=== PATIENT | female | born 1985 | race Caucasian/White ===

== ENCOUNTER 2017-11-22 09:20 | Inpatient (IN) | payer MEDICAID, SELFPAY ==
[2017-11-22] VITALS (19 sets, daily range): BP systolic 94–139; BP diastolic 47–80; PULSE 67–99; RESP 16–18; TEMP 36.1–36.8; O2SAT 93–98; BMI 29.2
[2017-11-22] MEDS: Lactated Ringers 1,000 ML 999 ML IV (09:50)
[2017-11-22] MEDS: Sodium Citrate/Citric Acid 30 ML UDC PO (10:00)
[2017-11-22 10:05] LABS: Bedside Glucose 82 mg/dL (70-110)
[2017-11-22 10:06] LABS: Absolute Lymphocyte Count 2.68 X10^3/ul (0.83-4.51); Absolute Neutrophil Count 9.4 X10^3/uL (2.0-7.7); Basophil# 0.04 X10^3/uL; Basophil% 0.3 % (0-1); Eosinophils% 1.5 % (0-5); Hematocrit 35.4 % (37-47); Hemoglobin 11.2 g/dl (12.0-15.0); Lymphocyte # 2.68 X10^3/ul (4.0); Mean Corp Hgb Conc 31.6 g/gl (32-36); Mean Corpuscular Hgb 28.6 pg (27.0-32.0); Mean Corpuscular Volume 90.3 fL (81-99); Mean Platelet Vol. 10.7 fl (6.2-12.0); Monocyte# 0.96 X10^3/uL; Monocyte% 7.2 % (0-10); Neutrophil # 9.44 X10^3/uL (2.7-7.7); Neutrophil % 70.4 % (47-70); Platelet Count 276 K/mm3 (150-450); RBC Distribution Width CV 16.9 % (11.6-14.6); RBC Distribution Width SD 55.2 fl (35.1-43.9); Red Blood Count 3.92 M/mm3 (4.2-5.4); White Blood Count 13.4 K/mm3 (4.4-11.0)
[2017-11-22 10:08] LABS: POSITIVE COUNT NO; POSITIVE DIFFERENTIAL NO; POSITIVE MORPHOLOGY NO
[2017-11-22] MEDS: Cefazolin 2 GM in 0.9% Normal Saline 100 ML IV (10:52)
[2017-11-22] MEDS: Oxytocin 30 units/NS 500 ml 30 UNITS/500 ML IV.SOLN 167 UNITS IV (11:09)
[2017-11-22 11:35] LABS: Bedside Glucose 92 mg/dL (70-110)
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
[2017-11-22 12:00] LABS: Prothrombin Time (Protime)PT. 13.3 SECONDS (11.7-14.9)
[2017-11-22] MEDS: Lactated Ringers 1,000 ML 100 ML IV ×2 (12:00→17:27)
--- NOTE | 2017-11-22 12:01 | PLAC_PTH ---
PATIENT: JINNY BARKSDALE LOC: [facility] U#:[id number] AGE/SX: 32/F ROOM: [facility] RE11/22/[address]: Dr. Adela Conteh DO : 1985 BED: 1 DIS: 11/25/2017 SPEC #: [id number] RECD: 11/22/17 12:45 STATUS: ERIK CRISTA #: [id number] AKILAH: 11/22/17 12:[address]: Adela Conteh DEPT: SURGICAL PATHOLOGY RECD BY: Hiro Ragland Tissues: Placenta, NOS Procedures: Surgery Specimen Level V HEADER OPERATION: Repeat section PRE-OP DIAGNOSIS: IUGR TISSUE SUBMITTED: Placenta MICROSCOPIC DIAGNOSIS Placenta: Placental disc - third trimester placenta (405 gm). - Focal areas of intraparenchymal hemorrhage (0.5 cm in greatest dimension). Membranes - pigment laden macrophages, consistent with meconium staining. Umbilical cord - three blood vessels and no pathologic diagnosis. SJ:eliecer 11/24/17 MICROSCOPIC DESCRIPTION Slides are reviewed. GROSS DESCRIPTION SPECIMEN: PLACENTA / CLINICAL INFORMATION: A. Weight: 2.262 kg B. Gestational Age: 38 weeks C. Sex: Female PLACENTAL WEIGHT (POST FIXATION): 405 gm PLACENTAL DIMENSIONS: 15 x 15 x 3 cm PLACENTAL SHAPE: Usual ovoid PLACENTAL WEIGHT FOR GESTATIONAL AGE: Within 10-99th percentile MEMBRANES - Present A. Insertion: Marginal B. Site of rupture from edge: At edge of placental disc C. Color of membrane: Linda, mucoidy-greenish consistent with meconium staining. D. Abnormalities: None UMBILICAL CORD - Present A. Color: Linda-young B. Insertion: Paracentral C. Length: 49 cm D. Diameter: 0.6 to 1.2 cm E. Number of vessels: Three F. Abnormalities: None PLACENTAL DISC - Present A. Color of surface: Linda-greenish consistent with meconium staining. B. surface abnormalities: None C. Maternal cotyledons: Intact with minimal tears D. Attached retro placental clot: No clot E. Cut surface: Dark red and spongy F. Lesions: Sections reveal two linda, indurated areas each measuring 0.5 cm in greatest dimension. G. Separate clot: Multiple blood clots are noted measuring in aggregate 6 x 5 x 2 cm and weighing 20?gm. SECTIONS SUBMITTED: 1. Membrane roll 2. Cord, maternal end, lesion 3. Cord, end 4. Placental disc, and maternal surfaces 5. Placental disc, and maternal surfaces 6. Placental disc, and maternal surfaces JOSE:eliecer 11/23/17 TC:5 CPT: 99151
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
[2017-11-22 12:44] LABS: Pathology Specimen OB SEE PATHOLOGY REPORT
[2017-11-22 15:36] LABS: Bedside Glucose 95 mg/dL (70-110)
[2017-11-22] MEDS: Ketorolac 30 MG/ML Syringe IV (17:23)
[2017-11-22 17:51] LABS: Bedside Glucose 164 mg/dL (70-110)
[2017-11-22 21:11] LABS: Bedside Glucose 136 mg/dL (70-110)
[2017-11-22] MEDS: Sertraline 100 MG Tablet PO (22:50)
[2017-11-22] MEDS: busPIRone 5 MG Tablet 10 MG PO (22:50)
[2017-11-22] MEDS: oxyCODONE 5 MG Tablet PO (22:51)
[2017-11-22 23:05] LABS: Bedside Glucose 109 mg/dL (70-110)
[2017-11-23] VITALS (12 sets, daily range): BP systolic 106–129; BP diastolic 50–70; PULSE 79–98; RESP 16–20; TEMP 36.2–36.8; O2SAT 91–98
[2017-11-23] MEDS: Lactated Ringers 1,000 ML 100 ML IV ×2 (01:25→06:11)
[2017-11-23] MEDS: Lactated Ringers 500 ML 999 ML IV (03:20)
[2017-11-23] MEDS: oxyCODONE 5 MG Tablet PO ×4 (04:23→20:03)
[2017-11-23 05:57] LABS: Hematocrit 28.1 % (37-47); Hemoglobin 8.7 g/dl (12.0-15.0); Mean Corpuscular Hgb 28.6 pg (27.0-32.0); Mean Corpuscular Volume 92.4 fL (81-99); Mean Platelet Vol. 10.4 fl (6.2-12.0); Platelet Count 245 K/mm3 (150-450); RBC Distribution Width CV 16.4 % (11.6-14.6); RBC Distribution Width SD 53.7 fl (35.1-43.9); Red Blood Count 3.04 M/mm3 (4.2-5.4); White Blood Count 16.2 K/mm3 (4.4-11.0)
[2017-11-23 06:00] LABS: International Normalized Ratio 0.9; Partial Thromboplast Time 25.5 Seconds (24.1-36.2); Prothrombin Time (Protime)PT. 12.4 SECONDS (11.7-14.9)
[2017-11-23 06:06] LABS: Scan Indicated on CBC? Y/N NO
[2017-11-23] MEDS: Ketorolac 30 MG/ML Syringe IV (06:20)
--- NOTE | 2017-11-23 08:13 | PCM.PN.OB ---
Patient Problems: Active and Suspected Problems (Last Updated 11/22/17 @ 11:43 by Adela Conteh DO) SROM (spontaneous rupture of membranes) (Acute) Subjective: Patient doing well. Cramping that is improved with pain medication. Ambulated to chair without difficulty yesterday. +Flatus. Hester in place draining clear yellow urine. Lázaro diet without nausea or vomiting. without difficulty. Lochia normal. No fevers, cp, sob, leg pain. - Physical Exam General: Alert, Oriented x3 HEENT: Atraumatic Lungs: - - No increased resp effort Abdomen: Soft, - - ATTP, FF@U, silver dressing in place and clean Extremities: No edema, No Calf Tenderness Skin: No rashes Neurological: Neuro grossly intact Psych/Mental Status: Normal Affect Vital Signs Temp Pulse Resp BP Pulse Ox 97.9 F 80 16 109/55 L 93 11/23/17 03:50 11/23/17 05:00 11/23/17 05:00 11/23/17 03:50 11/23/17 05:00 Oxygen Delivery Method Room Air Weight: 165 lb Body Mass Index (BMI) 29.2 Intake and Output for Last 24 Hours 11/21/17 11/22/17 11/23/17 23:59 23:59 23:59 Intake Total 3143 / 3143 3171 / 3171 Output Total 675 / 675 360 / 360 Balance 2468 / 2468 2811 / 2811 Laboratory Tests Past 24 Hrs 11/22/17 11/22/17 11/22/17 09:50 09:50 09:50 WBC 13.4 H RBC 3.92 L Hgb 11.2 L Hct 35.4 L MCV 90.3 MCH 28.6 MCHC 31.6 L RDW 16.9 H RDW Differential 55.2 H Plt Count 276 MPV 10.7 Immature Gran % (Auto) 0.600 Neut % (Auto) 70.4 H Lymph % (Auto) 20.0 [place] % (Auto) 7.2 Eos % (Auto) 1.5 Baso % (Auto) 0.3 Absolute Neuts (auto) 9.4 H Absolute Lymphs (auto) 2.68 Total Counted Not Reportable PT Cancelled INR Cancelled APTT Cancelled Functional Protein C Functional Protein S Func Antithrombin III Factor V Leiden Mutat Blood Type A POSITIVE Antibody Screen NEGATIVE 11/22/17 11/23/17 11/23/17 11:25 05:33 05:33 WBC 16.2 H RBC 3.04 L Hgb 8.7 L Hct 28.1 L MCV 92.4 MCH 28.6 MCHC 31.0 L RDW 16.4 H RDW Differential 53.7 H Plt Count 245 MPV 10.4 Immature Gran % (Auto) Neut % (Auto) Lymph % (Auto) [place] % (Auto) Eos % (Auto) Baso % (Auto) Absolute Neuts (auto) Absolute Lymphs (auto) Total Counted PT 13.3 12.4 INR 1.0 0.9 APTT 24.0 L 25.5 Functional Protein C Functional Protein S Func Antithrombin III Factor V Leiden Mutat Blood Type Antibody Screen 11/23/17 11/23/17 11/23/17 05:33 05:33 05:33 WBC RBC Hgb Hct MCV MCH MCHC RDW RDW Differential Plt Count MPV Immature Gran % (Auto) Neut % (Auto) Lymph % (Auto) [place] % (Auto) Eos % (Auto) Baso % (Auto) Absolute Neuts (auto) Absolute Lymphs (auto) Total Counted PT INR APTT Functional Protein C Pending Functional Protein S Pending Func Antithrombin III Pending Factor V Leiden Mutat Pending Blood Type Antibody Screen POC Glucose 11/22/17 11/22/17 11/22/17 22:47 19:55 17:42 POC Glucose 109 136 H 164 H 11/22/17 11/22/17 11/22/17 15:14 11:30 09:54 POC Glucose 95 92 82 Medical Necessity - Tobacco Use Smoking Status: Current every day smoker Assessment/Plan All Active Problems (Last Updated 11/22/17 @ 11:43 by Adela Conteh DO) SROM (spontaneous rupture of membranes) (Acute) Post-op day 2 s/p RLTCS - AF, VSS - Doing well - Received fluid bolus this morning for low UOP, improved and UOP adequate - Type 2 DM: Continue accuchecks. Highest BG 160's, patient states due to diet (hamburger, ice cream, banana bread). Continue to monitor accuchecks. Diabetic diet - Hx of DVT/PE: Thrombophilia workup pending. Continue Lovenox today - D/c hester today and encouraged ambulation - - PPBC: Desires depo - Dispo: Routine postop care
[2017-11-23 08:25] LABS: Bedside Glucose 75 mg/dL (70-110)
[2017-11-23] MEDS: Enoxaparin 80 MG/0.8 ML Syringe 74 MG SC ×2 (11:01→21:40)
[2017-11-23] MEDS: 0.9% Saline Lock 10 ML Syringe IV (11:08)
[2017-11-23 11:46] LABS: Bedside Glucose 86 mg/dL (70-110)
[2017-11-23] MEDS: Ferrous Sulfate 325 MG Tablet PO ×2 (13:18→17:59)
--- NOTE | 2017-11-23 13:55 | NURSING ---
This nursing information systems coordinator reviewed the charting completed by Mario Alberto Staples, student nurse and it is complete.
[2017-11-23] MEDS: Ibuprofen 600 MG Tablet PO ×2 (14:48→21:39)
[2017-11-23 15:20] LABS: Bedside Glucose 82 mg/dL (70-110)
[2017-11-23] MEDS: DiphenhydrAMINE 25 MG Capsule PO (17:58)
[2017-11-23 18:10] LABS: Bedside Glucose 70 mg/dL (70-110)
[2017-11-23 20:36] LABS: Bedside Glucose 107 mg/dL (70-110)
[2017-11-23] MEDS: Sertraline 100 MG Tablet PO (21:40)
[2017-11-23 22:05] LABS: Bedside Glucose 94 mg/dL (70-110)
[2017-11-24] MEDS: oxyCODONE 5 MG Tablet PO ×6 (00:20→22:53)
[2017-11-24] MEDS: DiphenhydrAMINE 25 MG Capsule PO ×2 (00:20→21:39)
[2017-11-24 02:13] VITALS: BP 127/70; PULSE 90; RESP 18; TEMP 36.6; O2SAT 95
[2017-11-24] MEDS: Ibuprofen 600 MG Tablet PO ×4 (03:47→21:38)
[2017-11-24 07:00] VITALS: BP 128/73; PULSE 91; RESP 14; TEMP 36.8; O2SAT 95
[2017-11-24 09:06] LABS: Bedside Glucose 82 mg/dL (70-110)
--- NOTE | 2017-11-24 09:28 | PCM.PN.OB ---
Patient Problems: Active and Suspected Problems (Last Updated 11/22/17 @ 11:43 by Adela Conteh DO) SROM (spontaneous rupture of membranes) (Acute) Subjective: Patient doing well. She feels her mood is stable. Tolerating a diet, but not adhering to a diabetic diet. No fevers, nausea, vomiting, cp, sob, leg pain. Lochia normal. Ambulating and voiding without difficulty. . Desires depo for BC. - Physical Exam General: Alert, Oriented x3 HEENT: Atraumatic Lungs: - - No increased resp effort Abdomen: Soft, Non Tender, - - FF@U, silver dressing in place without shadowing and no surrounding errythema Extremities: No Calf Tenderness Skin: No rashes Neurological: Neuro grossly intact Psych/Mental Status: Appropriate Vital Signs Temp Pulse Resp BP Pulse Ox 98.2 F 91 14 128/73 H 95 11/24/17 07:00 11/24/17 07:00 11/24/17 07:00 11/24/17 07:00 11/24/17 07:00 Oxygen Delivery Method Room Air Weight: 165 lb Body Mass Index (BMI) 29.2 Intake and Output for Last 24 Hours 11/22/17 11/23/17 11/24/17 23:59 23:59 23:59 Intake Total 3143 / 3143 3171 / 3171 Output Total 675 / 675 1260 / 1260 Balance 2468 / 2468 1911 / 1911 POC Glucose 11/24/17 11/23/17 11/23/17 08:54 21:59 20:02 POC Glucose 82 94 107 11/23/17 11/23/17 11/23/17 18:04 15:04 11:38 POC Glucose 70 82 86 Medical Necessity - Tobacco Use Smoking Status: Current every day smoker Assessment/Plan All Active Problems (Last Updated 11/22/17 @ 11:43 by Adela Conteh DO) SROM (spontaneous rupture of membranes) (Acute) POD#2 s/p RLTCS for IUGR, hx of prior - AF, VSS - Doing well - Continue SSRI. Patient usually takes Buspar as needed for anxiety. Discussed that there is insufficient data on Buspar with . Patient desires to stop Buspar. Told her to let us know if her anxiety worsens - Hx of DVT/PE: Continue Lovenox. Thrombophilia panel pending. Will have her follow up with abbie - Type 2 DM: BG have been well controlled. Pt not adhering to diabetic diet after counseling. Will decrease BG checks to fasting, 1 hour postprandial, qHS. Pt reported to RN that she was not checking her BG's at home as her meter broke. Will send her an rx for meter - Post-op anemia: Continue Iron. Will send rx for Iron - Routine post-op care - Dispo: Possible d/c home tomorrow. Will give Depo for BC prior to d/c
[2017-11-24] MEDS: Enoxaparin 80 MG/0.8 ML Syringe SC ×2 (10:00→21:39)
[2017-11-24 11:00] VITALS: BP 127/56; PULSE 79; RESP 18; TEMP 36.9; O2SAT 94
[2017-11-24 11:20] LABS: Bedside Glucose 86 mg/dL (70-110)
[2017-11-24] MEDS: Ferrous Sulfate 325 MG Tablet PO ×2 (13:33→18:25)
[2017-11-24 15:46] LABS: Bedside Glucose 83 mg/dL (70-110)
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
[2017-11-24 16:55] VITALS: BP 123/79; PULSE 102; RESP 18; TEMP 36.6; O2SAT 95
--- NOTE | 2017-11-24 18:48 | NURSING ---
Support person, Paul, in room and talking appropriately with this nurse. Pt. states Paul brought her prescription bottle for tylenol in to show us that is does not contain codeine. Prescription bottle given to RN is empty and label reads acetaminophin 500 mg but the top of the label is torn off. Returned to pt. Questions answered regarding baby care and dinner for pt.
[2017-11-24 19:18] LABS: Chlamydia Trachomatis by PCR Negative (Negative); Neisserai gonorrhoeae by PCR Negative (Negative)
[2017-11-24 19:19] LABS: Probe Check PASS; Sample Adequacy Control PASS; Specimen Processing Control PASS
[2017-11-24 20:16] VITALS: BP 134/75; PULSE 115; RESP 18; TEMP 36.3
[2017-11-24] MEDS: Sertraline 100 MG Tablet PO (21:39)
[2017-11-24 21:51] LABS: Bedside Glucose 90 mg/dL (70-110)
--- NOTE | 2017-11-24 22:13 | NURSING ---
[id number] patient had late supper and assessing post prandial blood glucose now, patient states that she will be going to bed now, HS blood glucose not being assessed d/t patient going to sleep at this time.
[2017-11-25 01:40] VITALS: BP 111/73; PULSE 67; RESP 18; TEMP 36.7
[2017-11-25 02:41] LABS: Bedside Glucose 94 mg/dL (70-110)
--- NOTE | 2017-11-25 02:42 | NURSING ---
patient came out to nurses station and stated that she needed her blood sugar checked because she felt jittery, this RN stated that RN would be back; bedside blood glucose 94.
[2017-11-25] MEDS: Ibuprofen 600 MG Tablet PO ×3 (04:43→15:07)
[2017-11-25] MEDS: oxyCODONE 5 MG Tablet PO ×3 (04:47→12:43)
[2017-11-25 06:03] VITALS: PULSE 72; RESP 16; O2SAT 94
--- NOTE | 2017-11-25 08:17 | PN.OBGYN_ITS ---
Patient Problems: Active and Suspected Problems (Last Updated 11/22/17 @ 11:43 by Adela Conteh DO) SROM (spontaneous rupture of membranes) (Acute) Subjective: Patient doing well. Tolerating reg diet and spont void without difficulty. +Flatus. Ambulating without difficulty. Lochia normal. Pain well controlled. Denies fevers, chills, cp, sob, leg pain. . Feels ready to go home today. She does not want depo, and is still considering her options for control. - Physical Exam General: Alert, Oriented x3 HEENT: Atraumatic Lungs: - - No increased resp effort Abdomen: Soft, Non Tender, - - FF@U-1 Extremities: No Calf Tenderness Skin: No rashes Neurological: Neuro grossly intact Psych/Mental Status: Appropriate Vital Signs Temp Pulse Resp BP Pulse Ox 98.1 F 72 16 111/73 94 11/25/17 01:40 11/25/17 06:03 11/25/17 06:03 11/25/17 01:40 11/25/17 06:03 Oxygen Delivery Method Room Air Weight: 165 lb Body Mass Index (BMI) 29.2 Intake and Output for Last 24 Hours 11/23/17 11/24/17 11/25/17 23:59 23:59 23:59 Intake Total 3171 / 3171 150 / 150 Output Total 1260 / 1260 Balance 1911 / 191 150 / 150 Laboratory Tests Past 24 Hrs 11/24/17 15:40 Chlam trachomat DNA PCR Negative N.gonorrhoeae DNA (PCR) Negative POC Glucose 11/25/17 11/24/17 11/24/17 02:36 21:37 15:35 POC Glucose 94 90 83 11/24/17 11/24/17 11:15 08:54 POC Glucose 86 82 Medical Necessity - Tobacco Use Smoking Status: Current every day smoker Assessment/Plan All Active Problems (Last Updated 11/22/17 @ 11:43 by Adela Conteh DO) SROM (spontaneous rupture of membranes) (Acute) Post-op #3 s/p RLTCS - Doing well, ready to go home - Reviewed discharge instructions and to follow up in 1 week and again in 4-6 weeks - Re-discussed PPBC and she is undecided at this time. Reviewed her options - Will send rx's for Percocet, Iron, Lovenox, and glucometer - Discussed with her the importance of calling her injection wax molder and PCP for continued management of her medical problems now that she is . Told her to call to make appointments with them - D/c home today
--- NOTE | 2017-11-25 08:24 | DCINST_ITS ---
Discharge Diet: - - Diabetic diet Discharge Activity: May not drive while taking narcotic pain medications., May Shower May resume sexual activity in: 6 weeks Weight Bearing Status: Partial weight bearing Lifting Restrictions: No lifting over 25 pounds Call your doctor if your incision/area has: Sudden Increased Bleeding, Increased Pain/ Swelling, Increased Redness, Foul Smelling Discharge, Swelling at the incision site Call your doctor if you observe: Fever of 101 or Higher, Using more than one pad per hour, Shortness of breath, Chest pain, Calf discomfort, Uncontrolled pain Additional Instructions: If you experience any of the following, contact your healthcare provider. * Bleeding that soaks a pad every hour for 2 hours * Fever 100.4 or higher * Unrelieved incision or abdominal pain * Swelling, redness, discharge or bleeding from your incision or episiotomy site * Your incision begins to separate * Problems urinating (including inability to urinate or burning while urinating). * Visual changes * Severe headache * Flu-like symptoms * Pain or redness in one of both of your breasts * Pain, warmth, tenderness or swelling in your legs, especially the calf area * Frequent nausea and vomiting * Symptoms of depression or anxiety If you experience any of the following, call 911 or go to the nearest Emergency Room. * Chest pain * Problems breathing * Seizure activity * Partial or complete paralysis of a body part, slurred speech, weakness or drooping of the face, or a sudden inability to walk or hold your balance Allergies/Adverse Reactions: Allergies iodine Allergy (Verified 11/22/17 10:02) Unknown latex Allergy (Verified 11/22/17 10:02) Unknown lidocaine Allergy (Verified 11/22/17 10:02) Unknown codeine Adverse Reaction (Verified 11/22/17 10:02) Nausea Penicillins Adverse Reaction (Verified 11/22/17 10:02) Upset Stomach Medications to take at Discharge Buspar 10 mg PO TID 11/22/17 Heparin 10,000 Unit/1,000Ml-Ns 10,000 unit SQ BID 11/22/17 Sertraline HCl [Zoloft] 100 mg PO DAILY 11/22/17 Ferrous Sulfate 325 mg PO BIDCM #60 tablet 11/24/17 Enoxaparin [Lovenox] 80 mg SC Q12@0600,1800 #60 syringe 11/25/17 Ferrous Sulfate 325 mg PO BIDCM #60 tablet 11/25/17 The following prescriptions were given: Enoxaparin [Lovenox] 80 mg SC Q12@0600,1800 #60 syringe Ferrous Sulfate 325 mg PO BIDCM #60 tablet Ferrous Sulfate 325 mg PO BIDCM #60 tablet Follow-Up: Call to make an appointment with your doctor for an incision check in 1-2 weeks. You will also need a 6 week post- follow up appointment. Test results from this visit will be discussed in further detail at your follow- up appointment, if applicable. Please Follow Up With: Adela Conteh DO When: 1 week and 4-6 weeks
[2017-11-25 08:51] LABS: Antithrombin 3 Function 123 % (75-135)
[2017-11-25] MEDS: Ferrous Sulfate 325 MG Tablet PO (09:03)
[2017-11-25] MEDS: Enoxaparin 80 MG/0.8 ML Syringe SC (09:04)
[2017-11-25 09:17] VITALS: BP 117/68; PULSE 82; RESP 24; TEMP 36.6
--- NOTE | 2017-11-25 11:45 | CASEMGMT ---
Social Work Labor and Delivery Unit Summary: 0935 Referral to [facility] ([facility]) at [phone]. Spoke with Yvonne in the intake department. Brief maternal and infant histories provided. Reported concerns about reported substance exposed baby, of reported prescribed opiates, though no positive drug screens showing at this time. Also reported concerns about later and intermittent care, inconsistent reports regarding medical history, and mother of baby reporting to have another child who and giving inconsistent reports as to when the child . Reported maternal mental health history, as well as father of baby (FOB) reportedly having history, which both could be additional risk factors down the road for care and safety of the baby. 1055 Presented to mother of baby (MOB) room. MOB holding baby and FOB in the bathroom showering when psychiatric social worker supervisor entered the room. MOB reports to be ready to leave today with the baby. MOB showed this filing writer the prescription Tylenol bottle that FOLucy brought in. MOB reports this was what MOB took prior to coming into the hospital, so reports there is no need to worry or have further concern on psychiatric social worker supervisor?s part. Addressed with MOB that this filing writer still with concern, as though this filing writer can see the words ?IC Acetaminophen 500mg 1 tablet every 6 hours for pain,? the label is torn off and unable to see who this was prescribed to, unable to see the dates of when this was prescribed, or details as to who prescribed this. Addressed with MOB that this filing writer having questions as to why the label looks so worn and there are no pills in the bottle if as MOB reported to this filing writer yesterday, to have only take one pill out of the bottle. MOB stated that threw up after taking the pill so flushed all the pills. MOB reports that did not think this would be a big deal since this is really an over the counter medication. Challenged MOB as to why MOB did not tell this filing writer that flushed the pills when initially talking. MOB reports it slipped MOB mind and that forgot to tell this filing writer. This filing writer let MOB know that this filing writer remains concerns as to what MOB is reporting and seems to have inconsistencies. This filing writer then moved on from this topic as MOB continued to report this was the only medicine that MOB ingested. FOB came out of the bathroom and this filing writer introduced self and reason for visit. FOB voiced that upset as not sure what is happening with MOB?s and baby?s release and with MOB getting into trouble for taking Tylenol. This filing writer asked MOB if okay to talk freely with FOB. MOB reports that FOB knows everything so yes, it is okay to talk. Educated FOB that the plan is for discharge today for both MOB and baby. Discussed with FOB that MOB is not in trouble per se, but there are concerns about what baby has been exposed to during , that when staff ask these types of questions it is not to get anyone in trouble, but for knowledge of exposure so that if medical intervention is needed staff knows what to be looking for and how to help. Discussed with MOB and FOB both that inconsistent reports are of concern at this time however. MOB indicated that has been telling staff what MOB took and reports belief that this has all been blown out of proportion. Discussed with MOB that staff only trying to do job, and when bottles are brought in with labels torn off and no pills in bottles, this is a concern and something that MOB did not initially report. Discussed that cannot even verify who prescribed the medicine to MOB. MOB reports the prescriber is the same as when MOB discussed with psychiatric social worker supervisor yesterday. MOB reports prescriber was previous OBGYN that prescribed the Tylenol. Challenged MOB that MOB told this filing writer that the prescription came from [facility] ED. MOB informed this filing writer that took one of these pills (Tylenol) from [facility] ED and then got a prescription from Dr. Jadiel MAJOR. Informed MOB that upon admission MOB reported [place] from [facility] and Tylenol with Codeine from Dr. Duvall, so again differing reports. MOB reports that only took Tylenol and that though initially the prescription had codeine since the doctor talked about codeine with MOB. Let family known that sometimes children services do check on families but does not mean that a child will be removed per se. Reviewed home going resources with MOB and FOB. When discussion about [facility] and Maternal Home Visiting out of [facility] broached, MOB looked to FOB for decision on referrals. FOB voiced that in agreement with referrals for support, and MOB agreed then. MOB voiced that does not want this filing writer mentioned daughter Analy on the referrals. This filing writer asked for a phone number for referral sources to contact. MOB asked SALENA to give his number. FOB provided [phone]. This filing writer broached support to MOB and baby at home going. This filing writer mentioned to FOB about FOB being at home to help MOB out. FOB reports going back to work on Tuesday (tomorrow). This filing writer expressed that thought FOB would be off for 2 weeks. Challenged MOB that MOB told this filing writer that FOB would be off for two weeks. MOB then looked at FOB, smiled, and voiced that ?your boss? reportedly told MOB that FOB could have two weeks off. FOB reported that did not do the paperwork for 2 weeks off work. Addressed who will be able to help MOB out then if needed. MOB voiced that will continue to take care of the baby as has been taking care of the baby while in the hospital. Acknowledged that MOB has been taking care of the baby, but that all people do at times need breaks, benefit from support for added rest. MOB voiced that FOB?s mother lives close and can help. FOB reports that his mother is close by and likely to help if asked. Addressed mood and anxiety disorders (PMAD) with MOB and FOB, just as review for added support and knowledge. MOB stated, ?I?m the same happy person as yesterday,? minimizing any concern for depression. Educated that all women are at risk for PMAD, but some are at higher risks, that it is good to know about so that can seek out support. Discussed how prevalent PMAD?s are and that this happens to many people, trying to minimize stigma and normalize that it is okay to ask for help. Broached different types of PMAD?s including depression, anxiety, psychosis, and even going into a manic phase. Addressed with FOB that fathers can also get depression. Inquired whether FOB has any mental health diagnoses. FOB reports to have PTSD. Inquired whether FOLucy is on any medication or in treatment. FOB reports that does not take meds, not in treatment, that just keeps busy and works a lot. MOB interjected then that SALENA keeps his emotional health under control. 1145 Spoke with [facility] about plan for this family. Sony asked this filing writer to verify dates, social security numbers and name that MOB has provided to this filing writer. Verified what this filing writer has on file, cross referencing to what was in the chart from the care record. [facility] asked if an ID was obtained from MOB at all. This filing writer found no photo identification for this MOB. For continuity of care of this family, in direct relation to child safety concerns, this filing writer did call the OBGYN office at [facility]. Spoke with nurse Magdalena to see if MOB had provided any identification to the OB office. Per [facility], MOB did provide an ID out of [place] with the last name of Latonia. Vish Cardoza at [facility]. Talked with [facility] again and [facility] still trying to verify some things about MOB?s history. Per [facility] is opening a case for investigation and will be going out to the home today to see MOB. Okay to let MOB and baby discharge. Assessment: MOB cooperative with psychiatric social worker supervisor, though appearing more irritated today, poor to fair eye contact when talking to psychiatric social worker supervisor. MOB seeming to be resistant to acknowledging, and minimizing any risk for self-regarding PMAD?s, or whey staff may be concerned about MOB?s inconsistent reports of what has ingested for pain control this . MOB also giving inconsistent reports as to what type of support will have at home going. FOB cooperative, voiced concerns, and appeared to listen intently to what psychiatric social worker supervisor talked about. FOB seemed surprised when psychiatric social worker supervisor talked about FOB being off for 2 weeks, eyes raised and just stared at this filing writer. MOB held baby for the entirety of social work visit. Intervention: Referral to [facility] today, collaboration with said agency this date regarding child protective concerns. Provision of [facility] resources lists, mental health providers, and depression packet to MOB. (MOB declines mental health referral). Referrals being made to [facility] Maternal Home visiting program through the [facility] Department. Referral to [facility] being made as well. Plan: MOB and baby being discharged home today with resources in place, including [facility] to follow up with the family at home today. No other services requested or indicated. -BAMBI Tian, JACQUELYN
[2017-11-25 14:03] LABS: Protein C, Functional 173 % (73-180); Protein S, Funtional 28 % (63-140)
[2017-11-25 15:09] VITALS: BP 117/78; PULSE 113; RESP 16; TEMP 36.5
--- NOTE | 2017-11-25 16:35 | CASEMGMT ---
Social Work Labor and Delivery Unit [facility] , asking for verification of MOB?s phone number provided. Confirmed that MOB provided [phone] upon admission to [facility]. [facility] reports tried to contact MOB and this is not even MOB?s number. This publicity writer looked at face sheet this publicity writer has on MOB and found another number of [phone]. Also let Yvonne know that FOB verified his number and that MOB and FOB left together. Yvonne asked what time MOB left. This publicity writer verified with nursing. Per [facility] nursing staff, MOB and FOB did not have a ride home initially so left later in the afternoon. See previous social work documentation this date and on 11-24-17 for details of background and interventions. -TRAV Tian, CRYSTAL FLAT GRINDER
--- NOTE | 2017-11-28 10:58 | CASEMGMT ---
Social Work Labor and Delivery [facility] referral submitted today via the [facility]'s secure online web based referral system. Submitted Maternal Home Visiting referral form to [facility] via fax at [phone]. Refer to previous social work documentation for details of social work interventions during this hospital stay. No other services requested or indicated. -TRAV Tian, ASSISTANT MEDIA BUYER
--- NOTE | 2017-11-30 12:18 | DS.PCM_ITS ---
Discharge Date and Diagnosis Date of Admission: 11/22/17 Date of Discharge: 11/25/17 Hospital Course and Treatment Operations: - - repeat section Summary of Care Provided: The patient is a 32 year old who presented at 38 wks gestation with SROM. History of a prior . History also significant for DVT and PE, type 2 diabetes, IUGR in the current , and bipolar disorder. She had a repeat section on November 22. She was restarted on Lovenox after the section. A clotting workup was ordered. Blood sugars were monitored , and were controlled with diet. She was tolerating a diet, ambulating, and voiding without difficulty. Her pain was controlled. She was discharged home in good condition on November 25. Her section and course were uncomplicated. She was instructed to follow-up with her counselor and senior product integrity engineer. She was also instructed to schedule I week incision check appointment. - Physical Exam Vital Signs Temp Pulse Resp BP Pulse Ox 97.7 F L 113 H 16 117/78 94 11/25/17 15:09 11/25/17 15:09 11/25/17 15:09 11/25/17 15:09 11/25/17 06:03 Oxygen Delivery Method Room Air Weight: 165 lb Body Mass Index (BMI) 29.2 Discharge Diet: - - Diabetic diet Discharge Activity: May not drive while taking narcotic pain medications., May Shower May resume sexual activity in: 6 weeks Weight Bearing Status: Partial weight bearing Call your doctor if your incision/area has: Sudden Increased Bleeding, Increased Pain/ Swelling, Increased Redness, Foul Smelling Discharge, Swelling at the incision site Call your doctor if you observe: Fever of 101 or Higher, Using more than one pad per hour, Shortness of breath, Chest pain, Calf discomfort, Uncontrolled pain Home Medications: Medications to take at Discharge Buspar 10 mg PO TID 11/22/17 Heparin 10,000 Unit/1,000Ml-Ns 10,000 unit SQ BID 11/22/17 Sertraline HCl [Zoloft] 100 mg PO DAILY 11/22/17 Ferrous Sulfate 325 mg PO BIDCM #60 tablet 11/24/17 Enoxaparin [Lovenox] 80 mg SC Q12@0600,1800 #60 syringe 11/25/17 Ferrous Sulfate 325 mg PO BIDCM #60 tablet 11/25/17 Oxycodone HCl/Acetaminophen [Percocet 5/325] 1 tablet PO Q6H PRN PRN 7 Days #15 tablet 11/25/17 Following Prescrptions Were Given to Patient: Oxycodone HCl/Acetaminophen [Percocet 5/325] 1 tablet PO Q6H PRN PRN 7 Days #15 tablet PRN Reason: Pain Enoxaparin [Lovenox] 80 mg SC Q12@0600,1800 #60 syringe Ferrous Sulfate 325 mg PO BIDCM #60 tablet Ferrous Sulfate 325 mg PO BIDCM #60 tablet Please Follow Up With: Adela Conteh DO When: 1 week and 4-6 weeks Medical Necessity - Tobacco Use Smoking Status: Current every day smoker Meaningful Use Info Meaningful Use Diagnoses (Choose all that apply): None applicable
== END 2017-11-25 15:20 | disposition home or self-care (01) | DRG 370 ==
PROVIDERS: Obstetrics & Gynecology; Admitting Provider Obstetrics & Gynecology; Referring Provider Obstetrics & Gynecology; Visit Provider Obstetrics & Gynecology
DX: O34.211 Maternal care for low transverse scar from previous cesarean delivery (principal); O24.12 Pre-existing type 2 diabetes mellitus, in childbirth; O36.5930 Maternal care for other known or suspected poor fetal growth, third trimester, not applicable or unspecified; O77.0 Labor and delivery complicated by meconium in amniotic fluid; O99.12 Other diseases of the blood and blood-forming organs and certain disorders involving the immune mechanism complicating childbirth; D68.51 Activated protein C resistance; O99.334 Smoking (tobacco) complicating childbirth; K21.9 Gastro-esophageal reflux disease without esophagitis; Z79.01 Long term (current) use of anticoagulants; Z79.899 Other long term (current) drug therapy; Z86.711 Personal history of pulmonary embolism; Z86.718 Personal history of other venous thrombosis and embolism; Z3A.38 38 weeks gestation of pregnancy; Z37.0 Single live birth
CPT/HCPCS: 59025; 81241; 82962; 85025; 85027; 85300; 85303; 85306; 85610; 85730; 86850; 86900; 87491; 87591; 88307; 99218; J7120; A4216; G0378; J2405